=== PATIENT | female | born 1965 | race Caucasian/White ===

== ENCOUNTER 2017-03-22 07:06 | Observation (INO) | payer SELFPAY ==
[~2017-03-22 07:06] MED LIST: AZITHROMYCIN250 MG PO; DELTASONE DPS20 MG PO; GABAPENTIN800 MG PO; MS CONTIN DPS15 MG PO; PROAIR RESPICL90 MCG IH; ZANAFLEX4 M1 PO; ZOFRAN8 MG PO
[2017-03-24] MEDS ORDERED: COZAAR100 MG PO (10:20)
[2017-03-24] MEDS ORDERED: XYZAL5 MG PO (10:20)
[2017-03-24] MEDS ORDERED: DAILY MULTIPLE1 EAC1 PO (10:22)
[2017-03-24] MEDS ORDERED: PEPCID DPS20 MG PO (10:22)
[2017-03-24] MEDS ORDERED: LIBRIUM-DPS25 MG PO (10:22)
[2017-03-24] MEDS ORDERED: LEVAQUIN DPS500 MG PO (10:23)
[2017-03-24] MEDS ORDERED: VITAMIN B-1100 MG PO (10:23)
[2017-03-24] MEDS ORDERED: BENADRYL-DPS25 MG PO (10:26)
== END 2017-03-23 12:10 | disposition home or self-care (01) ==
DX: F10.929 Alcohol use, unspecified with intoxication, unspecified (principal); E87.6 Hypokalemia; K76.0 Fatty (change of) liver, not elsewhere classified; K70.10 Alcoholic hepatitis without ascites; E27.9 Disorder of adrenal gland, unspecified; R91.1 Solitary pulmonary nodule; J44.9 Chronic obstructive pulmonary disease, unspecified; G89.29 Other chronic pain; M54.5 Low back pain; R79.89 Other specified abnormal findings of blood chemistry; Z72.0 Tobacco use; Z79.899 Other long term (current) drug therapy; Z79.52 Long term (current) use of systemic steroids